=== PATIENT | male | born 1995 | race Caucasian/White ===

== ENCOUNTER 2018-11-20 15:14 | Emergency (ER) | payer OTHER, SELFPAY ==
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
[2018-11-20] MEDS ORDERED: CEPHALEXIN 250 MG CAP ONE (15:55)
[2018-11-20 16:17] VITALS: BP 125/77; TEMP 98.7; O2SAT 100
== END 2018-11-20 15:58 | disposition home or self-care (01) ==
LOC: ER 15:14
DX: S01.04XA Puncture wound with foreign body of scalp, initial encounter (principal); W34.010A Accidental discharge of airgun, initial encounter; Y93.9 Activity, unspecified; Y92.009 Unspecified place in unspecified non-institutional (private) residence as the place of occurrence of the external cause
CPT/HCPCS: 99283